=== PATIENT | female | born 1995 | race African-American/Black ===

== ENCOUNTER 2023-07-06 10:32 | Emergency (ER) | payer MEDICAID, OTHER ==
[~2023-07-06] VITALS: Ht 157.5 cm; Wt 87.3 kg
[2023-07-06 11:07] VITALS: BP 115/76; PULSE 99; RESP 18; TEMP 97.7; O2SAT 99
[2023-07-06 11:09] LABS: Urine Bacteria NONE SEEN /hpf (None Seen); Urine Blood Negative /uL (Negative); Urine Clarity HAZY (Clear); Urine Color Colorless (Yellow); Urine Mucus FEW (None Seen); Urine Protein, UAD Negative (Negative); Urine Specific Gravity 1.019 (1.001-1.035); Urine Urobilinogen Normal (Negative); Urine WBC 5 /hpf (0 - 5); Urine pH 5.5 (5.0-8.0)
[2023-07-06 12:48] LABS: Vaginal Trichomonas Not Present
[2023-07-06 12:50] LABS: Vaginal Bacteria None Seen; Vaginal Epithelial Cells Moderate
[2023-07-06 12:52] LABS: Vaginal Clue Cells Few
[2023-07-06] MEDS ORDERED: METR-344 PO (13:12)
[2023-07-06] MEDS ORDERED: IBUP-1456 PO (13:12)
[2023-07-09 22:06] LABS: Chlamydia Trachomatis, NAA Negative (Negative); Neisseria gonorrhoeae, NAA Negative (Negative)
== END 2023-07-06 13:18 | disposition home or self-care (01) ==
LOC: ER 10:32
DX: N76.0 Acute vaginitis (principal); B96.89 Other specified bacterial agents as the cause of diseases classified elsewhere; Z87.42 Personal history of other diseases of the female genital tract; Z79.1 Long term (current) use of non-steroidal anti-inflammatories (NSAID); Z79.899 Other long term (current) drug therapy
CPT/HCPCS: 81001; 81025; 87210

== ENCOUNTER 2024-05-14 20:30 | Emergency (ER) | payer MEDICAID ==
[~2024-05-14] VITALS: Ht 157.5 cm; Wt 89.8 kg
[~2024-05-14 20:30] MED LIST: IBUP-1456 PO; METR-344 PO
[2024-05-14 21:39] VITALS: BP 130/74; PULSE 92; RESP 16; TEMP 98.6; O2SAT 98
[2024-05-15] MEDS: KETOROLAC TROMETH 30 MG/ML 1ML VIAL IM ONE (01:54)
== END 2024-05-15 02:22 | disposition left against medical advice (07) ==
LOC: ER 20:30
DX: M79.604 Pain in right leg (principal)
CPT/HCPCS: 73590; 73610; 73630; 96372; 99284; J1885